=== PATIENT | female | born 1975 | race Caucasian/White ===

== ENCOUNTER 2017-03-18 09:56 | Outpatient (CLI) | payer OTHER ==
[2017-03-18 10:36] LABS: eGFR (African) > 60; eGFR (Non-African) > 60
== END 2017-03-18 09:57 ==
LOC: LAB 09:56
PROVIDERS: ATTEND Family Medicine
DX: Z00.00 Encounter for general adult medical examination without abnormal findings (principal); Z12.4 Encounter for screening for malignant neoplasm of cervix
CPT/HCPCS: 36415; 80053; 80061; 88148; G0143

== ENCOUNTER 2017-07-22 13:58 | Outpatient (CLI) | payer OTHER | END 2017-07-22 14:00 | LOC: LAB 13:58 | PROVIDERS: ATTEND Family Medicine | DX: E78.2 Mixed hyperlipidemia (principal) | CPT/HCPCS: 36415; 80061 ==

== ENCOUNTER 2017-11-17 09:48 | Outpatient (CLI) | payer OTHER ==
[2017-11-17 10:37] LABS: BASOPHILS % 0.6 (0.0-1.5); EOSINOPHILS % 1.9 % (0.0-6.8); MEAN CORPUSCULAR HEMOGLOBIN 30.3 pg (28.0-34.0); MEAN CORPUSCULAR VOLUME 90.7 fl (80.0-100.0); MONOCYTES % 3.6 % (0.0-11.0); NEUTROPHILS # 7.9 # k/uL (1.4-7.7)
[2017-11-17 10:55] LABS: eGFR (African) > 60; eGFR (Non-African) > 60
== END 2017-11-17 09:55 ==
LOC: LAB 09:48
PROVIDERS: ATTEND Family Medicine
DX: R00.2 Palpitations (principal); I10 Essential (primary) hypertension
CPT/HCPCS: 36415; 80053; 80061; 84443; 85025; 93225

== ENCOUNTER 2017-12-21 13:42 | Outpatient (CLI) | payer OTHER | END 2017-12-21 13:43 | LOC: CARD 13:42 | PROVIDERS: ATTEND Internal Medicine Cardiovascular Disease | DX: R00.2 Palpitations (principal); R07.9 Chest pain, unspecified; I10 Essential (primary) hypertension; E78.5 Hyperlipidemia, unspecified; Z72.0 Tobacco use | CPT/HCPCS: 99213 ==

== ENCOUNTER 2018-02-08 12:16 | Outpatient (CLI) | payer OTHER | END 2018-02-08 12:17 | LOC: CARD 12:16 | PROVIDERS: ATTEND Internal Medicine Cardiovascular Disease | DX: R00.2 Palpitations (principal); R07.9 Chest pain, unspecified; E78.5 Hyperlipidemia, unspecified; I10 Essential (primary) hypertension; Z72.0 Tobacco use | CPT/HCPCS: 93350; 99213 ==